=== PATIENT | female | born 1950 ===

== ENCOUNTER 2018-07-11 20:08 | Emergency (ER) | payer MEDICARE, MEDICAID ==
[2018-07-11] MEDS ORDERED: ONDANSETRON HCL 4 MG/2 ML SOL ONE (20:10)
[2018-07-11] MEDS ORDERED: SODIUM CHLORIDE 0.9% 1000ML 1,000 ML IV ONE ×2 (20:33→22:16)
[2018-07-11 20:37] VITALS: TEMP 99.7
[2018-07-11] MEDS ORDERED: ONDANSETRON HCL 4 MG/2 ML SOL IV ONE (20:42)
[2018-07-11 20:45] LABS: BASOPHILS % (AUTO) 0 % (0-3); EOSINOPHILS % (AUTO) 0 % (0-9); HEMATOCRIT 39 % (35-47); HEMOGLOBIN 12.7 gm/dl (12.0-15.5); LYMPHOCYTES % (AUTO) 7.7 % (10-50); MEAN CORPUSCULAR HEMOGLOBIN 29.2 pg (27.0-32.0); MEAN CORPUSCULAR HGB CONC 32.9 gm/dl (32.0-36.0); MEAN CORPUSCULAR VOLUME 89 fL (81-99); MONOCYTES % (AUTO) 1.4 % (0-12); NEUTROPHILS % (AUTO) 90.5 % (37-80)
[2018-07-11 20:57] LABS: ALBUMIN 4.1 gm/dl (3.4-5.0); BILIRUBIN,TOTAL 0.8 mg/dl (0.2-1.0); CALCIUM 9.4 mg/dl (8.5-10.1); CARBON DIOXIDE 17.9 mEq/L (21-32); CREATININE 1.16 mg/dl (0.60-1.00); CRP INFLAMMATORY 0.54 mg/dl (0.00-0.33); POTASSIUM 4.1 mMol/L (3.5-5.1); TOTAL PROTEIN 8.3 gm/dl (6.4-8.2)
[2018-07-11] MEDS ORDERED: LORAZEPAM 2 MG/ML SOL IV ONE (21:05)
[2018-07-11] MEDS ORDERED: LORAZEPAM 2 MG/ML SOL ONE (21:13)
[2018-07-11 21:24] LABS: APPEARANCE,URINE Clear; BILIRUBIN,URINE 1+ (NEGATIVE); COLOR,URINE Yellow; GLUCOSE, URINE (UA) NEGATIVE (NEGATIVE); KETONES,URINE 4+ (NEGATIVE); LEUKOCYTE ESTERASE ,URINE TRACE (NEGATIVE); NITRATE,URINE NEGATIVE (NEGATIVE); OCCULT BLOOD,URINE 1+ (NEG-TRACE); UROBILINOGEN,URINE 0.2 (0.2-1.0 EU)
[2018-07-11 21:32] LABS: ICTOTEST,URINE NEGATIVE (NEGATIVE)
[2018-07-11 21:33] LABS: BACTERIA 1+ (< 1+); CRYSTALS NEGATIVE (0-3 AVE/HPF)
[2018-07-11] MEDS ORDERED: LEVOFLOXACIN 25 MG/ML 500 MG in SODIUM CHLORIDE 0.9% 100 ML 100 ML IV ONE (22:15)
[2018-07-11] MEDS ORDERED: LEVOFLOXACIN 25 MG/ML SOL IV ONE (22:38)
[2018-07-11] MEDS ORDERED: SODIUM CHLORIDE 0.9% FLUSH 10 ML SOL IV PRN (22:44)
[2018-07-11 22:49] VITALS: O2SAT 97
[2018-07-11 23:22] VITALS: RESP 21
[2018-07-12 00:45] VITALS: BP 99/53; PULSE 85
== END 2018-07-12 00:12 | disposition home or self-care (01) | DRG 690 ==
LOC: ED 20:08
DX: N39.0 Urinary tract infection, site not specified (principal); E86.0 Dehydration; R11.2 Nausea with vomiting, unspecified; F41.9 Anxiety disorder, unspecified
CPT/HCPCS: 80053; 81001; 85025; 87088; 96365; 96366; 96374; 96375; 99283; 99285; J1956; J2060; J2405